=== PATIENT | male | born 1980 | race African-American/Black ===

== ENCOUNTER 2019-06-17 20:30 | Emergency (ER) | payer OTHER ==
[2019-06-17 20:49] VITALS: BP 134/83; PULSE 75; TEMP 98.4; BMI 28.1
[2019-06-17] MEDS ORDERED: AZITHROMYCIN 500 MG TABLET PO ONE (21:46)
[2019-06-17] MEDS ORDERED: AZITHROMYCIN 500 MG TABLET ONE (22:00)
--- NOTE | 2019-06-17 22:00 | PDOC ---
History of Present Illness - General Chief Complaint: Penile Drainage Stated Complaint: THICK DISCHARGE FROM PENIS Time Seen by Provider: 06/17/19 21:34 History Source: Patient Exam Limitations: Clinical Condition - History of Present Illness Initial Comments: 06/17/19 21:56 Patient with no significant past medical history present with complaint of 2- day history of yellow penile discharge. Denies pain to penis or scrotum. Denies rash. Patient sexually active with one partner and does not use condom. Patient thinks he might have STD. Denies any other symptoms Is this a multiple visit Asthma Patient?: No Timing/Duration: other (2 days) Past History - Past Medical History Allergies/Adverse Reactions: Allergies Allergy/AdvReac Type Severity Reaction Status Date / Time No Known Allergies Allergy Verified 09/13/12 18:07 Home Medications: Ambulatory Orders No Home Medications 0 dose .ROUTE UTDICT 09/13/12 - Psycho Social/Smoking Cessation Hx Smoking Status: No Smoking History: Never smoked Number of Cigarettes Smoked Daily: 0 Information on smoking cessation initiated: No Hx Alcohol Use: No Drug/Substance Use Hx: No Review of Systems - Review of Systems Able to Perform ROS?: Yes Is the patient limited Uzbek proficient: No Constitutional: No: Chills, Fever, Malaise, Weakness HEENTM: No: Symptoms Reported Respiratory: No: Symptoms reported Cardiac (ROS): No: Symptoms Reported ABD/GI: No: Symptoms Reported, Nausea, Vomiting : Yes: Symptoms Reported, See HPI, Discharge (yellow penile discharge). No: Burning, Dysuria, Frequency, Flank Pain, Hematuria, Urgency, Testicular Mass, Testicular Swelling, Lesions, Testicular Pain Musculoskeletal: No: Symptoms Reported Integumentary: No: Symptoms Reported, Rash Neurological: No: Symptoms reported All Other Systems: Reviewed and Negative *Physical Exam - Vital Signs Last Vital Signs Temp Pulse Resp BP Pulse Ox 98.4 F 75 20 134/83 100 06/17/19 20:41 06/17/19 20:41 06/17/19 20:41 06/17/19 20:41 06/17/19 20:41 - Physical Exam General Appearance: Yes: Nourished, Appropriately Dressed. No: Apparent Distress HEENT: positive: Normal ENT Inspection Respiratory/Chest: negative: Respiratory Distress, Accessory Muscle Use Gastrointestinal/Abdominal: positive: Normal Bowel Sounds, Flat, Soft. negative : Tender Male Genitalia: positive: normal genitalia, discharge (small amount of yellow thick discharge from penis). negative: testicular tenderness, testicular mass, epididymus tender, inguinal hernia, CVAT Musculoskeletal: positive: Normal Inspection Extremity: positive: Normal Inspection Integumentary: positive: Normal Color. negative: Rash Neurologic: positive: Fully Oriented, Alert, Normal Mood/Affect, Normal Response Medical Decision Making - Medical Decision Making 06/17/19 21:56 Patient with no significant past medical history present with complaint of 2- day history of yellow penile discharge. Denies pain to penis or scrotum. Denies rash. Patient sexually active with one partner and does not use condom. Patient thinks he might have STD. Denies any other symptoms Exam significant for small amount of yellow thick discharge from penis. No rash to his penis or scrotum. No testicular tenderness or swelling. Symptoms likely chlamydial infection. Urine GC and chlamydia tests ordered. Culture of penile discharge obtained and sent. Patient will be treated empirically with ceftriaxone 250 mg IM and azithromycin 1 g p.o. for treatment of gonorrhea and chlamydia pending lab results. Patient advised no unprotected sex for at least 3 to 4 weeks. Discharge - Discharge Information Problems reviewed: Yes Clinical Impression/Diagnosis: Penile discharge Condition: Stable Disposition: HOME - Admission No - Follow up/Referral Referrals: Abner Figueroa MD, MD [Primary Care Provider] - - Patient Discharge Instructions Patient Printed Discharge Instructions: DI for Chlamydia Additional Instructions: You were treated today empirically for gonorrhea and chlamydia. Your discharge from penis is likely due to chlamydia and lab tests sent for confirmation. You will be contacted with lab results. No unprotected sex for at least 3 to 4 weeks - Post Discharge Activity
--- NOTE | 2019-06-20 14:46 | PDOC ---
Patient Follow-up (Call Back) - Post ED Follow - Up Chief Complaint: std Condition at time of discharge: Stable Disposition at time of original discharge: HOME - Disposition Additional Instructions/Notes: Pt genital culture positive for gonorrhea. Patient appropriately treated during visit, no further action necessary.
== END 2019-06-17 22:15 | disposition home or self-care (01) ==
LOC: JER 20:30
DX: R36.9 Urethral discharge, unspecified (principal)
CPT/HCPCS: 36415; 87070; 87077; 87186; 87205; 87491; 87591; 96372; 99281-25

== ENCOUNTER 2022-11-02 16:19 | Emergency (ER) | payer OTHER ==
[2022-11-02 16:30] VITALS: BP 127/88; PULSE 114; RESP 18; TEMP 98.5; BMI 30.4
[2022-11-02] MEDS ORDERED: ACETAMINOPHEN 1000 MG/100 ML BAG IVPB ONE (17:23)
[2022-11-02] MEDS ORDERED: SODIUM CHLORIDE 1,000 ML IV STA (17:23)
[2022-11-02 17:33] LABS: HEMATOCRIT 47.8 % (35.4-49); HEMOGLOBIN 15.9 GM/dL (11.7-16.9); MCH 30.5 pg (25.7-33.7); MCHC 33.2 g/dl (32.0-35.9); MEAN CELL VOLUME 91.8 fl (80-96); MEAN PLT VOLUME 8.8 fl (7.5-11.1); PLATELET COUNT 190 10^3/uL (134-434); RBC 5.21 M/mm3 (4.00-5.60); RDW 13.5 % (11.9-15.9); WHITE BLOOD COUNT 7.6 K/mm3 (4.0-10.0)
[2022-11-02] MEDS ORDERED: ACETAMINOPHEN INJECTION 100 ML IVPB ONE (17:41)
[2022-11-02 17:47] LABS: INR 1.1 (0.83-1.09); PROTHROMBIN TIME (PATIENT) 12.8 SEC (9.7-13.0)
[2022-11-02 17:49] LABS: ACTIVATED PTT 28.1 SECONDS (25.2-36.5)
[2022-11-02 17:52] LABS: CHLORIDE 106 mmol/L (98-107); SODIUM 135 mmol/L (136-145)
[2022-11-02 17:54] LABS: CALCIUM 9.6 mg/dL (8.5-10.1)
[2022-11-02 17:55] LABS: ALBUMIN 4.2 g/dl (3.4-5.0); ANION GAP 9 MMOL/L (8-16); BLOOD UREA NITROGEN 13.6 mg/dL (7-18); CO2 20 mmol/L (21-32); GLUCOSE,RANDOM 130 mg/dL (74-106)
[2022-11-02 17:58] LABS: CREATININE 1.1 mg/dL (0.55-1.3); SGOT/AST 30 U/L (15-37); SGPT/ALT 46 U/L (13-61)
[2022-11-02 18:00] LABS: BILIRUBIN,TOTAL 0.8 mg/dL (0.2-1); TOT PROT 7.8 g/dl (6.4-8.2)
[2022-11-02 18:01] LABS: ALK PHOS 59 U/L (45-117)
[2022-11-02] MEDS ORDERED: METOCLOPRAMIDE HCL INJECTION 10 MG/2 ML VIAL IVPB ONE (19:18)
[2022-11-02] MEDS ORDERED: MECLIZINE HCL 25 MG TABLET (FP) PO ONE (19:18)
[2022-11-02] MEDS ORDERED: METOCLOPRAMIDE HCL INJECTION 10 MG/2 ML VIAL ONE (19:24)
[2022-11-02 19:56] LABS: METHADONE, UR NEGATIVE (NEGATIVE); PHENCYCLIDINE,URINE NEGATIVE (NEGATIVE); URINE BARBITURATES NEGATIVE (NEGATIVE); URINE BENZODIAZEPINES NEGATIVE (NEGATIVE)
[2022-11-02 19:57] LABS: COCAINE, UR NEGATIVE (NEGATIVE); OPIATES, URI NEGATIVE (NEGATIVE); URINE AMPHETAMINES NEGATIVE (NEGATIVE)
[2022-11-02 20:35] LABS: PH,URINE 8.5 (5.0-8.0); URINE APPEARANCE CLEAR; URINE BILIRUBIN NEGATIVE (NEGATIVE); URINE COLOR YELLOW; URINE GLUCOSE (UA) NEGATIVE (NEGATIVE); URINE KETONE 2+ (NEGATIVE); URINE LEUK ESTERASE NEGATIVE (NEGATIVE); URINE NITRITE NEGATIVE (NEGATIVE); URINE PROTEIN NEGATIVE (NEGATIVE)
[2022-11-02] MEDS ORDERED: IBUPROFEN 600 MG TABLET (FP) PO ONE ×2 (21:19→21:25)
== END 2022-11-02 21:33 | disposition home or self-care (01) ==
LOC: JER 16:19
PROC: 3E033NZ Introduction of Analgesics, Hypnotics, Sedatives into Peripheral Vein, Percutaneous Approach (ICD-10-PCS; principal; 2022-11-02)
PROC: 3E033GC Introduction of Other Therapeutic Substance into Peripheral Vein, Percutaneous Approach (ICD-10-PCS; 2022-11-02)
PROC: 3E0337Z Introduction of Electrolytic and Water Balance Substance into Peripheral Vein, Percutaneous Approach (ICD-10-PCS; 2022-11-02)
DX: R51.9 Headache, unspecified (principal); R42 Dizziness and giddiness; Z20.822 Contact with and (suspected) exposure to COVID-19
CPT/HCPCS: 0241U-QW; 36415; 70450-TC; 80053; 80307; 81003; 82550; 82553; 82962; 84484; 85027; 85379; 85610; 85730; 86850; 86900; 86901; 93005; 93010; 99285-25